=== PATIENT | female | born 1980 | race Caucasian/White ===

== ENCOUNTER 2016-08-27 06:49 | Day surgery (SDC) | payer BC ==
[2016-08-21 16:38] LABS: BASOPHILS ABSOLUTE 0.07 10/3/uL (0.0-0.16); EOSINOPHILS 1.6 %; EOSINOPHILS ABSOLUTE 0.11 10/3/uL (0.0-0.53); HEMATOCRIT 39.2 % (36.0-48.0); HEMOGLOBIN 13.3 g/dL (12.0-16.0); IMMATURE GRANULOCYTES 0.1 %; IMMATURE GRANULOCYTES ABSOLUTE 0.01 10/3/uL (0.0-0.11); LYMPHOCYTES 32.1 %; MEAN CORPUS HGB CONC 33.9 g/dL (32.0-36.0); MEAN CORPUSCULAR HEMOGLOB 30.5 pg (26.0-34.0); MEAN CORPUSCULAR VOLUME 89.9 fL (80-100); MEAN PLATELET VOLUME 11.2 fL (9.2-13.0); MONOCYTES 6.3 %; MONOCYTES ABSOLUTE 0.43 10/3/uL (0.21-1.20); NEUTROPHILS 58.9 %; NEUTROPHILS ABSOLUTE 4.03 10/3/uL (2.02-8.40); PLATELET COUNT 307 10/3/uL (150-400); RBC DISTRIBUTION WIDTH 12.3 % (12.0-16.0); RED CELL COUNT 4.36 10/6/uL (4.0-5.6); WHITE BLOOD CELLS 6.9 10/3/uL (4.5-10.5)
[2016-08-21 16:39] LABS: MANUAL DIFF NO %
[2016-08-21 16:43] LABS: PARTIAL THROMBO TIME 25.1 SEC (22.5-37.2); PROTIME (NOT ORD) 12.6 SEC (12.0-14.5)
[2016-08-21 16:49] LABS: BUN (BLOOD UREA NITROGEN) 9 MG/DL (6-23); CALCIUM, SERUM 8.8 MG/DL (8.5-10.4); CHLORIDE, SERUM 103 MMOL/L (96-112); CO2 (CARBON DIOXIDE) 27 MMOL/L (24-34); GFR AFRICAN AMERICAN 110 ML/MIN (>=60); GFR NON AFRICAN AMERICAN 95 ML/MIN (>=60); GLUCOSE, SERUM 79 MG/DL (60-99); POTASSIUM, SERUM 3.7 MMOL/L (3.5-5.3); SODIUM, SERUM 139 MMOL/L (135-148)
--- NOTE | ~2016-08-27 | OP ---
Record Of Operation [facility] [address] [place]. [address] NAME: SIA VAZ : 80 STATUS : REG [facility] PAT#: [id number] AGE: 36 ADM/REG DATE : 08/27/16 MR#: [id number] REPORT SERV DATE: 08/27/16 DICTATED BY: HALEY CASTRO DATE: 08/27/16 REPORT STATUS : Draft TRANSCRIBED BY: MODL DATE: 08/27/16 DATE OF PROCEDURE: 08/27/2016 PRIMARY SURGEON: Haley Castro M.D. FIRST ASSISTANCE: Sena Bedolla M.D. PREOPERATIVE DIAGNOSIS: Symptomatic 16 week fibroid uterus. POSTOPERATIVE DIAGNOSIS: 18 week fibroid uterus with pelvic adhesions. PROCEDURES PERFORMED: 1. CPT code 33641, da Michael (laparoscopic robotic) hysterectomy with left salpingo- oophorectomy, right salpingectomy. 2. CPT code 70280, da Michael (laparoscopic robotic) multiple myomectomies. 3. CPT code 80800, da Michael (laparoscopic robotic) right ovarian transposition. ESTIMATED BLOOD LOSS: 10 mL. MATERIAL FORWARDED TO THE LABORATORY FOR EXAMINATION: Correct as listed on the pathology report. INDICATIONS AND FINDINGS: Sia Vaz is a 36-year-old 0 seen in consultation regarding an enlarging fibroid uterus noted over two pelvic ultrasounds in three month period. She has menorrhagia in addition to her complaints. Ultrasound and MRI shows multiple fibroids. FINDINGS AT THE TIME OF SURGERY: She has an 18-week multi-fibroid uterus with a prominent fundal fibroid that measured approximately 12 cm in order to complete hysterectomy, myomectomy as necessary to remove this large fibroid, and then that fibroid is split into three pieces in order to remove vaginally. She has adhesions of the pelvis. The right ovary is otherwise unremarkable, it was pexed to the right iliac fossa. Upon extirpation, the uterus is inspected and is consistent with a benign fibroid uterus. PROCEDURE IN DETAIL: The patient was taken the operating room, where under general endotracheal anesthesia, she was placed in the modified lithotomy position using Florentin stirrups. The abdomen and vagina were prepped and the patient was draped. A UMER uterine manipulator was placed without difficulty. A Veress needle was inserted in the left upper quadrant. Pneumoperitoneum was established. A non-bladed 8 mm cannula for the da Michael system was inserted, approximately 8 cm above the umbilicus. Under direct visualization three 8 mm cannulae for the da Michael system were placed, two in the lower quadrants, one in the right midaxillary line. An accessory 10/12 trocar was placed in left upper quadrant. The patient was placed in Trendelenburg and the robot was assembled. From the console, a thorough intraabdominal pelvic exploration was undertaken and the findings were as noted. Sharp electrocautery enterolysis was undertaken to take down the pelvic adhesions. Inspection of the ovaries showed adhesions of the left ovary, the right ovary is otherwise Record Of Operation [address] [address] NAME: SIA VAZ : 80 STATUS : REG [facility] PAT#: [id number] AGE: 36 ADM/REG DATE : 08/27/16 MR#: [id number] REPORT SERV DATE: 08/27/16 DICTATED BY: HALEY CASTRO DATE: 08/27/16 REPORT STATUS : Draft TRANSCRIBED BY: MODL DATE: 08/27/16 unremarkable. Therefore, the right mesosalpinx was isolated, coagulated with bipolar cautery, transected with monopolar scissors. The retroperitoneal spaces were entered over the psoas muscles bilaterally, extended to the round ligaments which were isolated, coagulated with bipolar cautery, transected with monopolar scissors. The anterior leaves of the broad ligament were dissected to the vesicouterine fold. The bladder was dissected off the lower segment of vesicovaginal septum without difficulty. The ovarian vessels on the left were isolated, coagulated with bipolar cautery, transected with monopolar scissors. The right utero-ovarian ligament was isolated, coagulated with bipolar cautery, transected with monopolar scissors. The right ovary is dissected and placed in the right iliac fossa for eventual transposition. The posterior leaves of the broad ligament were dissected to the uterosacral ligaments. The uterine vessels were skeletonized, were coagulated bipolar cautery, transected with monopolar scissors. The cardinal and uterosacral ligaments were dissected with monopolar cautery to a level below the cervix. The vagina is entered over the ANA nonconductive ring, and using electrocautery in a circumferential fashion, hysterectomy was completed. The large fundal fibroid is dissected and removed from, otherwise intact uterus, the uterus was then removed, the left tube and ovary are attached to the large fibroid. The large fibroid is and dissected into three sections, each of which were removed separately. The pelvis was irrigated, suctioned, inspected and found to be free of clot, blood, or debris. The vaginal cuff was closed with a running stitch #2-0 V-Loc. The right ovary is pexed to the right iliac fossa with 2 horizontal mattress stitches of 2-0 Vicryl. The pneumoperitoneum was reduced. All instruments were removed. All counts were correct. The 12 fascial incisions closed with [id number] stitch of 0 Vicryl. The skin incisions were closed subcuticular stitches of 4-0 Monocryl followed by Dermabond. The patient was awakened, taken to the recovery room in stable condition after having tolerated the procedure well. ORESTES/KELECHI Haley Castro M.D. / [id number] CC: Cristian Eason M.D.
[~2016-08-27 06:49] MED LIST: PROBIOTIC; TRI-SPRINTEC PO; VITAMINS
== END 2016-08-27 20:11 | disposition home or self-care (01) ==
LOC: SDC 06:49
PROVIDERS: Obstetrics & Gynecology Gynecologic Oncology
PROC: 0UT78ZZ Resection of Bilateral Fallopian Tubes, Via Natural or Artificial Opening Endoscopic (ICD-10-PCS; 2016-08-27)
PROC: 0UT18ZZ Resection of Left Ovary, Via Natural or Artificial Opening Endoscopic (ICD-10-PCS; 2016-08-27)
PROC: 0UB98ZZ Excision of Uterus, Via Natural or Artificial Opening Endoscopic (ICD-10-PCS; 2016-08-27)
PROC: 0US04ZZ Reposition Right Ovary, Percutaneous Endoscopic Approach (ICD-10-PCS; 2016-08-27)
PROC: 0UT98ZZ Resection of Uterus, Via Natural or Artificial Opening Endoscopic (ICD-10-PCS; principal; 2016-08-27 09:30)
DX: D25.9 Leiomyoma of uterus, unspecified (principal); N83.02 Follicular cyst of left ovary
CPT/HCPCS: 36415; 71020; 80048; 84703; 85025; 85610; 85730; 86850; 86900; 86901; 88112; 88305; 88307; 93005; A9270-GY; J0694; J1170; J1885; J2250; J2405; J2550; J2710; J3010